=== PATIENT | female | born 1995 | race Caucasian/White ===

== ENCOUNTER 2019-06-04 03:05 | Emergency (ER) | payer BC ==
[~2019-06-04] VITALS: Ht 162.6 cm; Wt 135.1 kg
[2019-06-04] MEDS ORDERED: morphine 4 MG/ML inj SYRINge IV STA (03:37)
[2019-06-04] MEDS ORDERED: ondansetron/PF 4mg/2ml inj IV STA (03:37)
--- NOTE | 2019-06-04 03:38 | NUR ---
Dr Forrest states I may adm zofran 4/Morphine 4.
[2019-06-04 03:39] LABS: URINE HCG NEGATIVE (NEG)
[2019-06-04 03:40] LABS: BASOPHILS # (AUTO) 0.1 X10'3 (0-0.2); BASOPHILS % (AUTO) 0.5 % (0-1); EOSINOPHILS # (AUTO) 0.1 X10'3 (0-0.9); EOSINOPHILS % (AUTO) 0.8 % (0-6); HEMATOCRIT 41.8 % (35.0-45.0); HEMOGLOBIN 13.9 g/dl (12.0-16.0); LYMPHOCYTES % (AUTO) 17.1 % (21-51); MEAN CORPUSCULAR HEMOGLOBIN 26.8 PG (27.0-31.0); MEAN CORPUSCULAR HGB CONC 33.2 g/dL (33.0-36.5); MEAN CORPUSCULAR VOLUME 80.8 FL (78-98); MEAN PLATELET VOLUME 8.6 FL (7.4-10.4); MONOCYTES % (AUTO) 8.7 % (2-12); NEUTROPHILS # (AUTO) 8.3 X10'3 (1.8-7.7); NEUTROPHILS % (AUTO) 72.9 % (42-75); PLATELET COUNT 364 X10'3 (140-440); RED BLOOD COUNT 5.17 X10'6 (4.20-5.60); RED CELL DISTRIBUTION WIDTH 16.2 % (11.5-14.5); WHITE BLOOD COUNT 11.4 X10'3 (4.5-11.0)
[2019-06-04 03:40] LABS: CLARITY,URINE CLEAR (Clear); COLOR,URINE YELLOW (Yellow); GLUCOSE, URINE NEGATIVE (Neg); KETONES,URINE NEGATIVE (Neg); LEUKOCYTE ESTERASE ,URINE TRACE (Neg); NITRITES, URINE NEGATIVE (Neg); OCCULT BLOOD,URINE TRACE-INTACT (Neg); PROTEIN,URINE NEGATIVE (Neg); UROBILINOGEN,URINE 0.2 E.U/dL (0.2-1.0)
[2019-06-04 03:50] LABS: UA COLLECTION TYPE CLN CATCH MIDSTREAM
[2019-06-04 03:51] LABS: BACTERIA,URINE FEW /HPF (Neg); RBC,URINE 0-2 /HPF (0-2); SQUAMOUS EPITHELIAL CELL,UR FEW /LPF (FEW); WBC,URINE 0-4 /HPF (0-4)
[2019-06-04 03:54] LABS: ALANINE AMINOTRANSFERASE 30 U/L (12-78); ALBUMIN 3.5 G/DL (3.4-5.0); ALBUMIN/GLOBULIN RATIO 0.9 (1.1-1.5); ALKALINE PHOSPHATASE 84 IU/L (46-116); ANION GAP 7 (8-16); ASPARTATE AMINO TRANSFERASE 15 U/L (10-37); BILIRUBIN,TOTAL 0.2 MG/DL (0.1-1.0); BLOOD UREA NITROGEN 13 MG/DL (7-18); BUN/CREATININE RATIO 17.3 (6.6-38.0); CHLORIDE 104 MMOL/L (99-107); CREATININE 0.75 MG/DL (0.40-0.90); GLUCOSE 115 MG/DL (70-104); LIPASE 138 U/L (73-393); POTASSIUM 3.8 MMOL/L (3.5-5.1); SODIUM 137 MMOL/L (135-145); TOTAL CARBON DIOXIDE 25.8 MMOL/L (24-32); TOTAL PROTEIN 7.6 G/DL (6.4-8.2); eGFR > 90 ML/MIN
[2019-06-04] MEDS ORDERED: metoclopramide 5 mg/ml inj IV ONE (05:45)
[2019-06-04] MEDS ORDERED: morphine 4 MG/ML inj SYRINge IV ONE (05:45)
[2019-06-04] MEDS ORDERED: normal saline 1000ML IV soln IVB ONE (05:45)
[2019-06-04] MEDS ORDERED: ketorolac tromethamine 15mg/ml inj. IV ONE (05:45)
[2019-06-04] MEDS: diatr meglu/diatrizoate 30ml oral sol.-(3 dose) bottle PO SCH ×3 (06:05→08:57)
[2019-06-04] MEDS ORDERED: morphine 2 MG/ML inj. syringe IV PRN (06:15)
[2019-06-04] MEDS ORDERED: LORazepam 2 mg/ml vial IV ONE (06:15)
[2019-06-04] MEDS ORDERED: iohexol 300mg/ml 100ml inj. ONE (08:26)
[2019-06-04] MEDS ORDERED: DICY10CA88 PO (09:37)
[2019-06-04] MEDS ORDERED: dicyclomine 10 MG capsule PO ONE (09:40)
[2019-06-04 10:33] VITALS: BP 136/57
[2019-06-04] MEDS ORDERED: AMLO10TA PO (20:42)
[2019-06-04] MEDS ORDERED: ONDA4TAB6 PO (21:00)
[2019-06-04] MEDS ORDERED: HYDR-4353 PO (21:00)
== END 2019-06-04 10:35 | disposition home or self-care (01) ==
LOC: ER 03:06
DX: R10.11 Right upper quadrant pain (principal); R11.10 Vomiting, unspecified; R10.13 Epigastric pain; I10 Essential (primary) hypertension; Z98.890 Other specified postprocedural states; Z79.899 Other long term (current) drug therapy
CPT/HCPCS: 36415; 74177; 76700; 80053; 81001; 81025; 83690; 85025; 87088; 96361; 96374; 96375; 96376; 99284; J1885; J2060; J2270; J2405; J2765; J7030; Q9963; Q9967

== ENCOUNTER 2019-06-04 19:08 | Emergency (ER) | payer BC ==
[~2019-06-04] VITALS: Ht 162.6 cm; Wt 165.0 kg
[~2019-06-04 19:08] MED LIST: DICY10CA88 PO
[2019-06-04 19:18] VITALS: BP 145/117
[2019-06-04] MEDS ORDERED: ondansetron 4mg rapidly disintigrating tab PO ONE (19:55)
[2019-06-04] MEDS ORDERED: morphine 4 MG/ML inj SYRINge IM ONE (19:55)
[2019-06-04] MEDS ORDERED: ketorolac trometh inj. 60 MG/2 ML VIAL IM ONE (19:55)
--- NOTE | 2019-06-04 20:30 | NUR ---
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 PATIENT REPORTS THIS RIGHT UPPER QUADRANT PAIN HAPPENING SINCE FIRST GRADE. PATIENT FIRST SAW A GI MD 4 YEARS. PATIENT REPORTS HAVING UPPER AND LOWER GI SCOPES BY ENDO THREE TIMES AND FIRST HAD UPPER AND LOWER SCOPES THREE YEARS AGO. PATIENT REPORTS HAVING CONTRAST AND NON CONTRAST CT SCANS CT SCAN HERE WN; LAST CT AND EX LAP IN [facility]. PATIENT REPORTS A BLAND DIET FOR THE LAST FEW MONTHS. STARTED AMLODIPINE A FEW MONTHS AGO
[2019-06-04] MEDS ORDERED: AMLO10TA PO (20:42)
[2019-06-04] MEDS ORDERED: ONDA4TAB6 PO (21:00)
[2019-06-04] MEDS ORDERED: HYDR-4353 PO (21:00)
== END 2019-06-04 21:26 | disposition home or self-care (01) ==
LOC: ER 19:09
DX: R10.11 Right upper quadrant pain (principal); I10 Essential (primary) hypertension; F41.9 Anxiety disorder, unspecified; F32.9 Major depressive disorder, single episode, unspecified; Z98.890 Other specified postprocedural states
CPT/HCPCS: 96372; 99283; J1885; J2270